=== PATIENT | female | born 1985 | race American Indian/Alaskan Native ===

== ENCOUNTER 2016-04-14 13:04 | Emergency (ER) | payer MEDICAID ==
[2016-04-14 14:26] VITALS: BP 128/82
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
--- NOTE | 2016-04-14 20:01 | XRay Report ---
FINAL REPORT PROCEDURE: Right shoulder. TECHNIQUE: Two views. HISTORY: Shoulder injury, rule out dislocation. COMPARISON: No prior studies are available for comparison. FINDINGS: The bones appear intact without fracture or dislocation. The joint spaces appear normal. The soft tissues are unremarkable. IMPRESSION: Normal study.
== END 2016-04-14 20:37 | disposition home or self-care (01) ==
LOC: TRG 13:04 → ED 13:04 → TRG 13:05 → EDSTATUS 14:04 → ED 20:37
DX: O26.893 Other specified pregnancy related conditions, third trimester (principal); I10 Essential (primary) hypertension; Z3A.28 28 weeks gestation of pregnancy
CPT/HCPCS: 59025; 99283

== ENCOUNTER 2016-05-16 13:59 | Outpatient (CLI) | payer MEDICAID ==
[2016-05-16] MEDS ORDERED: LACTATED RINGERS 500 ML IV ONE (14:05)
[2016-05-16 14:42] VITALS: BP 118/64
[2016-05-16 15:46] LABS: Bacteria,Urine 2+ /HPF (Negative); Bilirubin,Urine NEG (Negative); Blood,Urine NEG (Negative); Ketones,Urine NEG (Negative); Leukocyte Esterase,Urine SM (Negative); Mucus,Urine 1+ /HPF; Nitrite,Urine NEG (Negative); Protein,Urine <15 mg/dL mg/dL (Negative); Urobilinogen,Urine < 2.0 mg/dL (<2.0); WBC,Urine < 1.0 /HPF (0.0-6.0)
== END 2016-05-16 16:59 | disposition home or self-care (01) ==
LOC: TRG 13:59
PROVIDERS: ATTEND Obstetrics & Gynecology
DX: O47.03 False labor before 37 completed weeks of gestation, third trimester (principal); Z3A.32 32 weeks gestation of pregnancy
CPT/HCPCS: 59025; 81001; J7120

== ENCOUNTER 2016-06-24 23:11 | Outpatient (CLI) | payer MEDICAID ==
[2016-06-25 03:36] VITALS: BP 121/69
[2016-06-25] MEDS ORDERED: VISTARIL PO ONE (04:07)
== END 2016-06-25 04:10 | disposition home or self-care (01) ==
LOC: TRG 23:11 → LD 23:37 → TRG 06-25 04:10
PROVIDERS: ATTEND Obstetrics & Gynecology
DX: O47.1 False labor at or after 37 completed weeks of gestation (principal); Z3A.38 38 weeks gestation of pregnancy
CPT/HCPCS: 59025; Q0177

== ENCOUNTER 2016-06-25 09:10 | Outpatient (CLI) | payer MEDICAID ==
[2016-06-25 09:45] VITALS: BP 120/77
[2016-06-25] MEDS ORDERED: VISTARIL PO PRN (11:07)
[2016-06-25] MEDS ORDERED: VISTARIL ONE (11:10)
== END 2016-06-25 11:18 | disposition home or self-care (01) ==
LOC: TRG 09:10
PROVIDERS: ATTEND Obstetrics & Gynecology
DX: O47.1 False labor at or after 37 completed weeks of gestation (principal); Z3A.38 38 weeks gestation of pregnancy
CPT/HCPCS: Q0177

== ENCOUNTER 2016-06-26 14:38 | Inpatient (IN) | payer MEDICAID ==
[2016-06-26] MEDS ORDERED: MINERAL OIL PO PRN (15:12)
[2016-06-26] MEDS ORDERED: BRETHINE SUB-Q PRN (15:12)
[2016-06-26] MEDS ORDERED: ePHEDrine SULFATE IV PRN (15:12)
[2016-06-26] MEDS ORDERED: SUBLIMAZE IV PRN (15:12)
[2016-06-26] MEDS ORDERED: BRETHINE IVP PRN (15:12)
[2016-06-26] MEDS ORDERED: XYLOCAINE 2% INFILTRATI ONE (15:12)
--- NOTE | 2016-06-26 15:21 | History and Physical Report ---
History of Present Illness Date of examination: 06/26/16 Date of admission: 06/26/2016 Chief complaint: Here with c/o ruptured membranes since this morning History of present illness: 31 y/o now 38+ weeks presents with SROM. care at [facility] since 12.5 weeks gestation.taking labetalol 100mg bid for CHTN. 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: abnormal PAP smear (positive HPV) - Obstetrical History Expected Date of Delivery: 07/08/16 Actual Gestation: 38 Week(s) 2 Day(s) : 5 Para: 3 Spontaneous Abortions: 1 Number of Living Children: 3 Medications and Allergies Allergies Allergy/AdvReac Type Severity Reaction Status Date / Time No Known Allergies Allergy Verified 05/16/16 14:20 Home Medications Medication Instructions Recorded Confirmed Last Taken Type Labetalol HCl [Labetalol HCl] 100 mg PO BID 06/24/16 06/24/16 06/24/16 08:00 History Review of Systems All systems: negative - Physical Exam Breasts: Positive: deferred Cardiovascular: Regular rate Lungs: Positive: Clear to auscultation Abdomen: Positive: soft Genitourinary (Female): Positive: normal external genitalia Vagina: Positive: normal moisture Uterus: Positive: enlarged Anus/Rectum: Positive: normal perianal skin Deep Tendon Reflex Grade: Normal +2 - Obstetrical FHR: category 1 Cervical Dilatation: 8 Cervical Effacement Percentage: 90 station: 0 Uterine Contraction Duration: 3-4 min Uterine Contraction Pattern: Regular Uterine Contraction Intensity: Strong/Firm Results All other labs normal. Assessment and Plan A: IUP @ 38 weeks with SROM, active labor P: Expect
[2016-06-26 15:38] LABS: Hematocrit 32.8 % (30.3-42.9); Hemoglobin 10.3 gm/dl (10.1-14.3); Mean Corpuscular HGB Conc 32 % (30-34); Mean Corpuscular Hemoglobin 26 pg (28-32); Mean Corpuscular Volume 84 fl (79-97); Platelet Count 233 K/mm3 (140-440); Red Blood Count 3.92 M/mm3 (3.65-5.03); Red Cell Distribution Width 14.2 % (13.2-15.2); White Blood Count 11.4 K/mm3 (4.5-11.0)
[2016-06-26] MEDS ORDERED: POLYCILLIN/NS 2 GM/100 ML 2 GM/100 ML BAG IV ONE (16:00)
[2016-06-26] MEDS ORDERED: LACTATED RINGERS 1,000 ML IV SCH (16:00)
[2016-06-26] MEDS ORDERED: PITOCin/NS 30 UNIT/500ML 30 UNITS/500 ML BAG IV SCH (16:00)
[2016-06-26] MEDS: PITOCin/NS 20 UNIT/1000ML DRIP 20 UNITS/1,000 ML BAG IV SCH ×2 (16:28→18:00)
--- NOTE | 2016-06-26 16:37 | Procedure Note ---
OB Delivery Note - Delivery Date of Delivery: 06/26/16 Surgeon: CAROLE COURTNEY Estimated blood loss: 300cc - Vaginal Delivery presentation: vertex Delivery position: OA Delivery induction: none Delivery monitor: external FHT, external uterine Route of delivery: Delivery placenta: spontaneous Delivery cord: 3 umbilical vessels Episiotomy: none Delivery laceration: none Anesthesia: intravenous Delivery comments: of a viable female 6# 10oz @ 1622 on 06/26/2016 over intact perineum. Apgars 8/9. Placenta delivered 3VCI. FF2 U-2, lochia small. Mother and baby doing well. - Infant A at 1 minute: 8 at 5 minutes: 9 Gender: Female (6#-10)
[2016-06-26] MEDS ORDERED: ZOFRAN IV PRN (16:38)
[2016-06-26] MEDS ORDERED: MILK OF MAGNESIA PO PRN (16:38)
[2016-06-26] MEDS ORDERED: DULCOLAX PR PRN (16:38)
[2016-06-26] MEDS ORDERED: TUCKS PAD TP PRN (16:38)
[2016-06-26] MEDS ORDERED: LANSINOH TP PRN (16:38)
[2016-06-26] MEDS ORDERED: TYLENOL PO PRN (16:38)
[2016-06-26] MEDS ORDERED: PHENERGAN PO PRN (16:38)
[2016-06-26] MEDS ORDERED: BENADRYL PO PRN (16:38)
[2016-06-26] MEDS ORDERED: SODIUM CHLORIDE FLUSH SYRINGE 10 ML IV SCH (17:00)
[2016-06-26] MEDS: MOTRIN PO SCH (19:20)
[2016-06-26] MEDS ORDERED: POLYCILLIN/NS 1 GM/50 ML 1 GM/50 ML BAG IV SCH (20:00)
[2016-06-26] MEDS: NORCO 5/325 PO PRN (20:55)
[2016-06-27] MEDS: MOTRIN PO SCH ×3 (02:38→12:49)
[2016-06-27 05:52] LABS: Hematocrit 26.8 % (30.3-42.9); Hemoglobin 8.5 gm/dl (10.1-14.3)
[2016-06-27] MEDS: NORCO 5/325 PO PRN ×3 (07:58→22:10)
--- NOTE | 2016-06-27 09:43 | Progress Note ---
Assessment and Plan A: PPD 1 Asymptomatic anemia VSS P: Routine care Depo for contraception Infed for anemia D/C tomorrow Subjective - Subjective Date of service: 06/27/16 Principal diagnosis: PPD1 Interval history: 31 y/o now 38+ weeks presents with SROM. care at [facility] since 12.5 weeks gestation.taking labetalol 100mg bid for CHTN. Delivered 06/26 @ 1622. Patient reports: appetite normal, voiding normally, pain well controlled, ambulating normally [place]: doing well Objective - Vital Signs Latest vital signs: Vital Signs Temp Pulse Pulse Resp BP BP 06/27/16 08:20 98.1 F 90 20 129/72 06/27/16 07:58 20 06/27/16 05:02 18 06/27/16 00:00 98.6 F 77 18 136/82 06/26/16 19:30 98.6 F 87 16 136/82 06/26/16 18:11 99.5 F 91 H 16 139/83 06/26/16 17:08 95 H 126/75 06/26/16 16:53 90 123/70 06/26/16 16:38 90 130/77 06/26/16 16:29 94 H 109/75 06/26/16 15:37 99.3 F 14 Intake and Output 06/26/16 06/27/16 06/27/16 22:59 06:59 14:59 Intake Total 700 550 240 Output Total 800 400 400 Balance -100 150 -160 Intake: Oral 300 300 240 Intake, Free Water 400 250 Output: Urine 800 400 400 Void 800 400 400 Other: Total, Intake Amount 300 300 240 Total, Output Amount 200 300 400 # Voids Void 1 Weight 187 lb Estimated Blood Loss 300 - Exam Cardiovascular: Present: Regular rate Lungs: Present: Normal air movement Vulva: both: normal (lochia scant) Extremities: Present: normal Deep Tendon Reflex Grade: Normal +2 - Labs Labs: Abnormal lab results 06/26/16 06/27/16 Range/Units 15:25 05:23 WBC 11.4 H (4.5-11.0) K/mm3 Hgb 8.5 L (10.1-14.3) gm/dl Hct 26.8 L D (30.3-42.9) % MCH 26 L (28-32) pg - Allied health notes Allied health notes reviewed: nursing
--- NOTE | 2016-06-27 09:44 | Discharge Summary ---
Providers - Providers Date of Admission: 06/26/16 15:14 Date of discharge: 06/28/16 Attending physician: ANTONIETA KESSLER MD Primary care physician: ANTONIETA KESSLER MD Hospitalization Reason for admission: active labor, IUP at term Delivery: Laceration: none Other procedures: none complications: none Discharge diagnosis: IUP at term delivered [place] baby: female Hospital course: uneventful Condition at discharge: Good Disposition: DISCHARGED TO HOME OR SELFCARE Plan - Provider Discharge Summary Activity: routine, no sex for 6 weeks, no heavy lifting 4 weeks, no strenuous exercise Diet: routine Instructions: routine Additional instructions: [] Smoking cessation referral if applicable(refer to patient education folder for contact #) [] Refer to [facility] Booklet Call your doctor immediately for: * Fever > 100.5 * Heavy vaginal bleeding ( >1 pad per hour) * Severe persistent headache * Shortness of breath * Reddened, hot, painful area to leg or breast * Drainage or odor from incision. * Keep incision clean and dry at all times and follow doctor's instructions regarding bathing/showering - Follow up plan Follow up: [facility] [Provider Group] - 6 Weeks
[2016-06-27] MEDS ORDERED: DEPO-PROVERA (CONTRACEPTION) IM ONE (10:30)
[2016-06-27] MEDS ORDERED: INFED IM ONE (10:30)
[2016-06-28] MEDS: MOTRIN PO SCH ×4 (01:35→12:44)
[2016-06-28] MEDS: NORCO 5/325 PO PRN ×2 (09:04→15:04)
[2016-06-28] MEDS ORDERED: DEPO-PROVERA (CONTRACEPTION) IM ONE (09:48)
[2016-06-28 17:02] VITALS: BP 150/100
== END 2016-06-28 17:20 | disposition home or self-care (01) | DRG 774 ==
LOC: TRG 14:38 → LD 15:14 → OB 18:04
PROVIDERS: ADMIT Obstetrics & Gynecology; ATTEND Obstetrics & Gynecology
PROC: 10E0XZZ Delivery of Products of Conception, External Approach (ICD-10-PCS; principal; 2016-06-26)
DX: O42.02 Full-term premature rupture of membranes, onset of labor within 24 hours of rupture (principal); O10.02 Pre-existing essential hypertension complicating childbirth; Z3A.38 38 weeks gestation of pregnancy; Z37.0 Single live birth; O99.52 Diseases of the respiratory system complicating childbirth; J45.909 Unspecified asthma, uncomplicated; O90.81 Anemia of the puerperium; D64.9 Anemia, unspecified
CPT/HCPCS: 36415; 59025; 85014; 85018; 85027; 86850; 86900; 86901; 99211; A6250; G0463; J0290; J1050; J1750; J2590; J3010; J7120; Q0177

== ENCOUNTER 2018-09-23 12:28 | Emergency (ER) | payer SELFPAY ==
[2018-09-23 12:57] VITALS: BP 151/99
--- NOTE | 2018-09-23 13:00 | Emergency Department Report ---
ED ENT HPI - General Chief complaint: Dental/Oral Stated complaint: TOOTHACEH/MIGRANE Time Seen by Provider: 09/23/18 12:56 Source: patient Mode of arrival: Ambulatory Limitations: No Limitations - History of Present Illness Initial comments: 33 y/o female comes for toothache and migraine time 2 days. No fever. She is aware that she has a hole in her tooth. Took Ibuprofen last dose was 5am. No N/V. MD complaint: tooth pain Onset/Timin -: days(s) Severity: severe Severity scale (0 -10): 8 Quality: aching, sharp Consistency: constant Improves with: none Worsens with: none Associated Symptoms: gum swelling, toothache - Related Data Home Medications Medication Instructions Recorded Confirmed Last Taken Labetalol HCl 100 mg PO BID 06/24/16 06/26/16 06/26/16 1 Previous Rx's Medication Instructions Recorded Last Taken Type Acetaminophen/Codeine [Tylenol 1 tab PO Q6H PRN #12 tab 09/23/18 Unknown Rx /Codeine # 3 tab] Ibuprofen [Motrin 600 MG tab] 600 mg PO Q8H PRN #15 tablet 09/23/18 Unknown Rx Allergies Allergy/AdvReac Type Severity Reaction Status Date / Time No Known Allergies Allergy Verified 05/16/16 14:20 ED Dental HPI - General Chief complaint: Dental/Oral Stated complaint: TOOTHACEH/MIGRANE Time Seen by Provider: 09/23/18 12:56 Source: patient Mode of arrival: Ambulatory Limitations: No Limitations - Related Data Home Medications Medication Instructions Recorded Confirmed Last Taken Labetalol HCl 100 mg PO BID 06/24/16 06/26/16 06/26/16 1 Previous Rx's Medication Instructions Recorded Last Taken Type Acetaminophen/Codeine [Tylenol 1 tab PO Q6H PRN #12 tab 09/23/18 Unknown Rx /Codeine # 3 tab] Ibuprofen [Motrin 600 MG tab] 600 mg PO Q8H PRN #15 tablet 09/23/18 Unknown Rx Allergies Allergy/AdvReac Type Severity Reaction Status Date / Time No Known Allergies Allergy Verified 05/16/16 14:20 ED Review of Systems ROS: Stated complaint: TOOTHACEH/MIGRANE Other details as noted in HPI Comment: All other systems reviewed and negative ED Past Medical Hx - Past Medical History Hx Hypertension: Yes Hx Congestive Heart Failure: No Hx Diabetes: No Hx Deep Vein Thrombosis: No Hx Renal Disease: No Hx Sickle Cell Disease: No Hx Seizures: No Hx Asthma: No Hx COPD: No Hx HIV: No - Social History Smoking Status: Never Smoker - Medications Home Medications: Home Medications Medication Instructions Recorded Confirmed Last Taken Type Labetalol HCl 100 mg PO BID 06/24/16 06/26/16 06/26/16 History 1 Acetaminophen/Codeine [Tylenol 1 tab PO Q6H PRN #12 tab 09/23/18 Unknown Rx /Codeine # 3 tab] Ibuprofen [Motrin 600 MG tab] 600 mg PO Q8H PRN #15 tablet 09/23/18 Unknown Rx ED Physical Exam - General Limitations: No Limitations General appearance: alert, in no apparent distress - Head Head exam: Present: atraumatic, normocephalic - Eye Eye exam: Present: normal appearance - Expanded ENT Exam Expanded Teeth exam: Present: dental caries, fractured tooth # (3), dental tenderness # (3). Absent: gingival enlargement - Neurological Exam Neurological exam: Present: alert, oriented X3, normal gait. Absent: motor sensory deficit - Expanded Neurological Exam Expanded Cranial nerves: EOM's Intact: Normal, Gag Reflex: Normal, Tongue Deviation: Normal, Nystagmus: Normal, Facial Sensation: Normal, Facial Palsy with Forehead Movement: Normal, Facial Palsy without Forehead Movement: Normal Cerebellar function: Finger to Nose: Normal Critical care attestation.: If time is entered above; I have spent that time in minutes in the direct care of this critically ill patient, excluding procedure time. ED Disposition Clinical Impression: Toothache Disposition: DC- TO HOME OR SELFCARE Is pt being admited?: No Does the pt Need Aspirin: No Condition: Stable Instructions: Dental Caries (ED), Toothache (ED) Additional Instructions: Take pain medication as prescribed. Follow up with a dentist. Prescriptions: Ibuprofen [Motrin 600 MG tab] 600 mg PO Q8H PRN #15 tablet PRN Reason: Pain Acetaminophen/Codeine [Tylenol /Codeine # 3 tab] 1 tab PO Q6H PRN #12 tab PRN Reason: Pain , Severe (7-10) Referrals: [facility] [Outside] - 3-5 Days [facility] [Outside] - 3-5 Days
== END 2018-09-23 13:15 | disposition home or self-care (01) ==
LOC: ED 12:28
DX: K08.89 Other specified disorders of teeth and supporting structures (principal); I10 Essential (primary) hypertension

== ENCOUNTER 2019-01-23 21:03 | Emergency (ER) | payer SELFPAY ==
[2019-01-23 21:48] VITALS: BP 142/94
--- NOTE | 2019-01-23 22:18 | Event Note ---
ED Screening Note Date of service: 01/23/19 Time: 22:17 ED Screening Note: 33 y o f presents with dental pain x 2 days no swelling This initial assessment/diagnostic orders/clinical plan/treatment(s) is/are subject to change based on patients health status, clinical progression and re-assessment by fellow clinical providers in the ED. Further treatment and workup at subsequent clinical providers discretion. Patient/guardian urged not to elope from the ED as their condition may be serious if not clinically assessed and managed. Initial orders include: nme discussed dentist resources with patient chart to registration
--- NOTE | 2019-01-23 22:46 | Emergency Department Report ---
Chief Complaint: Dental/Oral Stated Complaint: TOOTHACHE/HEADACHE/RT EAR PAIN - HPI History of Present Illness: 33-year-old -[place] female presents to the emergency room for tooth ache on the right upper jaw headache and right ear pain 2 days. Patient states that she had been on food and had broke her tooth in the upper right jaw. Patient states she started to have pain that traveled to her right ear and headache. Patient reports she is taking ibuprofen and Ambesol. - Exam Vital Signs: Vital Signs 01/23/19 01/23/19 21:37 22:15 Temperature 99.1 F 99.1 F Pulse Rate 86 83 Respiratory 18 18 Rate Blood Pressure 142/94 142/94 O2 Sat by Pulse 100 100 Oximetry MSE screening note: Focused history and physical exam performed. Due to findings the following was ordered: ED Medical Decision Making - Medical Decision Making 33-year-old -[place] female presents to the emergency room for tooth ache on the right upper jaw headache and right ear pain 2 days. Patient states that she had been on food and had broke her tooth in the upper right jaw. Patient states she started to have pain that traveled to her right ear and h eadache. Patient reports she is taking ibuprofen and Ambesol. ED Disposition for MSE Clinical Impression: Toothache, Broken tooth injury Disposition: MED SCREENING EXAM-LEFT Is pt being admited?: No Does the pt Need Aspirin: No Condition: Stable Additional Instructions: Continue with ibuprofen for pain management. I recommend blow drying her tooth and applying a temporary filling to follow-up with a dentist in the next 24-48 hours. Referrals: ZAY WINKLER MD [Primary Care Provider] - 3-5 Days [facility] [Outside] - 3-5 Days [facility] [Outside] - 3-5 Days Forms: Work/School Release Form(ED)
== END 2019-01-23 23:13 | disposition left against medical advice (07) ==
LOC: ED 21:03
DX: K08.89 Other specified disorders of teeth and supporting structures (principal); H92.01 Otalgia, right ear
CPT/HCPCS: 99282

== ENCOUNTER 2021-02-08 07:42 | Emergency (ER) | payer SELFPAY ==
[2021-02-08 07:49] VITALS: BP 146/105
[2021-02-08] MEDS ORDERED: LIDOCAINE (1%) 10 MG/1 ML VIAL 20 ML MDV INFILTRATI ONE (08:09)
[2021-02-08] MEDS ORDERED: TETANUS,DIPH,PERTUSS(ACELL) VACCINE 0.5 ML SYRINGE IM ONE (08:09)
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
[2021-02-08] MEDS: NEOMY 3.5 MG/BACIT 400 UNITS/POLY B 5000 UNITS/GM OINT PACKET TP ONE ×2 (09:24→09:29)
== END 2021-02-08 09:54 | disposition home or self-care (01) ==
LOC: ED 07:42
DX: S61.411A Laceration without foreign body of right hand, initial encounter (principal); W26.8XXA Contact with other sharp object(s), not elsewhere classified, initial encounter; Y93.89 Activity, other specified; Y92.89 Other specified places as the place of occurrence of the external cause; Y99.8 Other external cause status
CPT/HCPCS: 12001; 90471; 90715; 99282; J3490

== ENCOUNTER 2021-02-28 01:25 | Emergency (ER) | payer SELFPAY ==
--- NOTE | 2021-02-28 02:40 | Emergency Department Report ---
ED General Adult HPI - General Chief complaint: Laceration/Recheck/Suture Stated complaint: REMOVAL OF STITCHES Source: patient Mode of arrival: Ambulatory Limitations: No Limitations - History of Present Illness Initial comments: Patient is a 35-year-old -Portuguese female with past medical history of hypertension who presented to the ED for wound check and suture removal from the left right palm laceration wound that was previously sutured about 3 weeks ago. Patient states that she has not been taking any medications including antibiotics but pain medication that were previously prescribed. Patient states that she was meant to go to her primary care physician for suture removal but could not get an appointment. Patient denies fever, chills, nausea, vomiting, n umbness and tingling or weakness of right hand, swelling chronic pain. MD Complaint: wound recheck and suture removal from right hand laceration wound -: Sudden, days(s) (3) Location: upper extremity (right palm) Radiation: non-radiation Severity scale (0 -10): 0 Quality: dull Consistency: intermittent Improves with: none Worsens with: none Associated Symptoms: denies other symptoms. denies: confusion, chest pain, cough, diaphoresis, fever/chills, headaches, loss of appetite, malaise, nausea/vomiting, rash, seizure, shortness of breath, syncope, weakness, other Treatments Prior to Arrival: none - Related Data Home Medications Medication Instructions Recorded Confirmed Last Taken Labetalol HCl 100 mg PO BID 06/24/16 06/26/16 06/26/16 1 Previous Rx's Medication Instructions Recorded Last Taken Type Acetaminophen/Codeine [Tylenol 1 tab PO Q6H PRN #12 tab 02/08/21 Unknown Rx /Codeine # 3 tab] Ibuprofen [Motrin 600 MG tab] 600 mg PO Q8H PRN #15 tablet 02/08/21 Unknown Rx Allergies Allergy/AdvReac Type Severity Reaction Status Date / Time No Known Allergies Allergy Verified 09/23/18 12:57 ED Review of Systems ROS: Stated complaint: REMOVAL OF STITCHES Other details as noted in HPI Constitutional: denies: chills, fever Eyes: denies: eye pain, eye discharge, vision change ENT: denies: ear pain, throat pain Respiratory: denies: cough, shortness of breath, wheezing Cardiovascular: denies: chest pain, palpitations Endocrine: no symptoms reported Gastrointestinal: denies: abdominal pain, nausea, diarrhea Genitourinary: denies: urgency, dysuria, discharge Musculoskeletal: other (healed previously sutured right palm laceration wound ). denies: back pain, joint swelling, arthralgia Skin: other (Previously sutured healing right palm laceration). denies: rash, lesions Neurological: denies: headache, weakness, paresthesias Psychiatric: denies: anxiety, depression Hematological/Lymphatic: denies: easy bleeding, easy bruising ED Past Medical Hx - Past Medical History Previous Medical History?: Yes Hx Hypertension: Yes Hx Congestive Heart Failure: No Hx Diabetes: No Hx Deep Vein Thrombosis: No Hx Renal Disease: No Hx Sickle Cell Disease: No Hx Seizures: No Hx Asthma: No Hx COPD: No Hx HIV: No - Surgical History Past Surgical History?: No - Social History Smoking Status: Never Smoker Substance Use Type: None - Medications Home Medications: Home Medications Medication Instructions Recorded Confirmed Last Taken Type Labetalol HCl 100 mg PO BID 06/24/16 06/26/16 06/26/16 History 1 Acetaminophen/Codeine [Tylenol 1 tab PO Q6H PRN #12 tab 02/08/21 Unknown Rx /Codeine # 3 tab] Ibuprofen [Motrin 600 MG tab] 600 mg PO Q8H PRN #15 tablet 02/08/21 Unknown Rx ED Physical Exam - General Limitations: No Limitations General appearance: alert, in no apparent distress - Head Head exam: Present: atraumatic, normocephalic, normal inspection - Eye Eye exam: Present: normal appearance, PERRL, EOMI Pupils: Present: normal accommodation - ENT ENT exam: Present: normal exam, normal orophraynx, mucous membranes moist, TM's normal bilaterally, normal external ear exam - Neck Neck exam: Present: normal inspection, full ROM - Respiratory Respiratory exam: Present: normal lung sounds bilaterally. Absent: respiratory distress, wheezes, rales, rhonchi, chest wall tenderness, accessory muscle use, decreased breath sounds, prolonged expiratory, other - Cardiovascular Cardiovascular Exam: Present: regular rate, normal rhythm, normal heart sounds. Absent: systolic murmur, diastolic murmur, rubs, gallop - GI/Abdominal GI/Abdominal exam: Present: soft, normal bowel sounds. Absent: tenderness, guarding, rebound, rigid, hyperactive bowel sounds, hypoactive bowel sounds, organomegaly - Extremities Exam Extremities exam: Present: normal inspection, full ROM, normal capillary refill, other (healed previously sutured right palm laceration wound) - Back Exam Back exam: Present: normal inspection, full ROM. Absent: tenderness, CVA tenderness (R), CVA tenderness (L), muscle spasm, paraspinal tenderness, vertebral tenderness - Neurological Exam Neurological exam: Present: alert, oriented X3, CN II-XII intact, normal gait, reflexes normal - Psychiatric Psychiatric exam: Present: normal affect, normal mood - Skin Skin exam: Present: warm, dry, intact, normal color, other (healed previously sutured right palm laceration wound). Absent: rash ED Course Vital Signs 02/28/21 01:32 Temperature 97.8 F Pulse Rate 95 H Respiratory 18 Rate Blood Pressure 168/99 O2 Sat by Pulse 99 Oximetry ED Medical Decision Making - Medical Decision Making This is a 35-year-old -Portuguese female with past medical history of hypertension who presented to the ED for wound check and suture removal from the left right palm laceration wound that was previously sutured about 3 weeks ago. Patient states that she has not been taking any medications including antibiotics but pain medication that were previously prescribed. Patient states that she was meant to go to her primary care physician for suture removal but could not get an appointment. In the ED, patient is alert and oriented x3 and is not in any distress with normal vital signs. The sutures were removed successfully and patient tolerated procedure well. Patient will discharge home and advised to follow-up with her primary care physician as needed. Patient was otherwise advised to return to the ED immediately if symptoms get worse. - Differential Diagnosis Infected wound; suture removal; hand laceration Critical care attestation.: If time is entered above; I have spent that time in minutes in the direct care of this critically ill patient, excluding procedure time. ED Disposition Clinical Impression: Encounter for removal of sutures Hand laceration Qualifiers: Encounter type: initial encounter Foreign body presence: unspecified Laterality: right Qualified Code(s): S61.411A - Laceration without foreign body of right hand, initial encounter Disposition: HOME / SELF CARE / HOMELESS Is pt being admited?: No Does the pt Need Aspirin: No Condition: Stable Instructions: Sutures, Chad, or Adhesive Wound Closure, [id number], Sutures, [place], or Adhesive Wound Closure Additional Instructions: Follow-up with your primary care physician as needed, return to the ED immediately if symptoms get worse. Referrals: [facility] [Provider Group] - as needed Time of Disposition: 02:40 Print Language: GRENADIAN
[2021-02-28 03:28] VITALS: BP 150/113
== END 2021-02-28 03:01 | disposition home or self-care (01) ==
LOC: ED 01:25
DX: S61.411D Laceration without foreign body of right hand, subsequent encounter (principal); X58.XXXD Exposure to other specified factors, subsequent encounter; Z48.02 Encounter for removal of sutures

== ENCOUNTER 2021-09-09 04:27 | Emergency (ER) | payer SELFPAY ==
[2021-09-09 05:14] LABS: Basophils % (Auto) 0.7 % (0.0-1.8); Eosinophils # (Auto) 0.1 K/mm3 (0.0-0.4); Eosinophils % (Auto) 1.4 % (0.0-4.3); Hematocrit 36.8 % (30.3-42.9); Hemoglobin 11.9 gm/dl (10.1-14.3); Lymphocytes # (Auto) 1.8 K/mm3 (1.2-5.4); Lymphocytes % (Auto) 38.1 % (13.4-35.0); Mean Corpuscular HGB Conc 32 % (30-34); Mean Corpuscular Volume 87 fl (79-97); Monocytes # (Auto) 0.6 K/mm3 (0.0-0.8); Monocytes % (Auto) 12.1 % (0.0-7.3); Platelet Count 346 K/mm3 (140-440); Red Blood Count 4.25 M/mm3 (3.65-5.03); Red Cell Distribution Width 12.2 % (13.2-15.2)
[2021-09-09 05:22] LABS: Alanine Aminotransferase 30 units/L (7-56); Albumin 4.1 g/dL (3.9-5); BUN/Creatinine Ratio 10; Blood Urea Nitrogen 8 mg/dL (7-17); Calcium 8.7 mg/dL (8.4-10.2); Hemolysis Index 2
--- NOTE | 2021-09-09 05:56 | XRay Report ---
XR chest routine 2V INDICATION / CLINICAL INFORMATION: Chest Pain. COMPARISON: None available. FINDINGS: SUPPORT DEVICES: None. HEART /PULMONARY VASCULATURE: No significant abnormality. LUNGS / PLEURA: No significant pulmonary or pleural abnormality. No pneumothorax. ADDITIONAL FINDINGS: No significant additional findings. IMPRESSION: 1. No acute findings. Signer Name: Shahriar Bolton MD Signed: 09/09/2021 5:51 AM Workstation Name: [id number]
--- NOTE | 2021-09-09 06:37 | Cat Scan Report ---
CT HEAD WITHOUT CONTRAST INDICATION / CLINICAL INFORMATION: facial numbness. TECHNIQUE: All CT scans at this location are performed using CT dose reduction for ALARA by means of automated exposure control. COMPARISON: None available. FINDINGS: BRAIN PARENCHYMA: No acute intracranial hemorrhage. No evidence of recent infarct. No mass effect or midline shift. VENTRICULAR SYSTEM/EXTRA-AXIAL SPACES: Ventricles are normal for age. No extra-axial fluid collection . ORBITS: Normal as visualized. SKELETAL SYSTEM/SOFT TISSUES: Normal bones and soft tissues. PARANASAL SINUSES/MASTOID AIR CELLS: No significant abnormality. ADDITIONAL FINDINGS: None. IMPRESSION: 1. No acute intracranial abnormality. Signer Name: Shahriar Bolton MD Signed: 09/09/2021 6:33 AM Workstation Name: [id number]
--- NOTE | 2021-09-10 17:42 | Electrocardiograph Report ---
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
== END 2021-09-09 10:44 | disposition left against medical advice (07) ==
LOC: ED 04:27
DX: R07.9 Chest pain, unspecified (principal); R20.0 Anesthesia of skin; Z53.21 Procedure and treatment not carried out due to patient leaving prior to being seen by health care provider
CPT/HCPCS: 36415; 70450; 71046; 80053; 84484; 84703; 85025; 93005